=== PATIENT | female | born 1970 | race Caucasian/White ===

== ENCOUNTER 2023-06-21 08:41 | Outpatient (OUT) | payer OTHER, SELFPAY ==
[2023-06-21 09:05] LABS: Basophils Absolute Auto 0.1 10^3/uL (0.0-0.1); Basophils Percent Auto 0.6 % (0.2-2.0); Eosinophils Absolute Auto 0.4 10^3/uL (0.0-0.7); Eosinophils Percent Auto 4.9 % (0.9-7.0); Hematocrit 41.8 % (36.0-48.0); Hemoglobin 13.2 g/dL (12.0-16.0); Immature Granulocytes Abs Auto 0.03 10^3/uL (0.00-0.03); Immature Granulocytes Pct Auto 0.4 % (0.0-0.5); Lymphocytes Absolute Auto 2.1 10^3/uL (1.2-3.8); Lymphocytes Percent Auto 25.4 % (20.5-60.0); Mean Corpuscular HGB Conc 31.6 g/dL (29.9-35.2); Mean Corpuscular Hemoglobin 27.8 pg (26.7-34.0); Mean Platelet Volume 9.8 fL (9.5-13.5); Monocytes Absolute Auto 0.5 10^3/uL (0.3-0.8); Monocytes Percent Auto 5.5 % (1.7-12.0); Neutrophils Absolute Auto 5.2 10^3/uL (1.4-6.5); Neutrophils Percent Auto 63.2 % (43.0-75.0); Platelet Count 376 10^3/uL (150-450); Red Blood Count 4.75 10^6/uL (4.20-5.40); Red Cell Distribution Width 14.7 % (11.0-15.0); White Blood Count 8.2 10^3/uL (4.0-11.0)
[2023-06-21 09:36] LABS: Erythrocyte Sedimentation Rate 51 mm/hr (<=30)
[2023-06-21 09:47] LABS: C Reactive Protein 0.6 mg/dL (<=1.0); Chol HDL Ratio 5.5; Cholesterol 188 mg/dL (<=200); HDL Cholesterol 34 mg/dL (40-60); Thyroid Stimulating Hormone 2.641 uIU/mL (0.358-3.740); Triglycerides 160 mg/dL (<=150)
[2023-06-21 10:32] LABS: Free T4 0.97 ng/dL (0.76-1.46)
== END 2023-06-21 08:42 | disposition home or self-care (01) ==
PROVIDERS: PCP Family Medicine; Visit Provider Family Medicine
DX: Z00.00 Encounter for general adult medical examination without abnormal findings (principal); R20.2 Paresthesia of skin; E55.9 Vitamin D deficiency, unspecified; R94.6 Abnormal results of thyroid function studies
CPT/HCPCS: 36415; 80061; 82306; 82607; 82746; 84439; 84443; 85025; 85652; 86140

== ENCOUNTER 2023-09-16 13:53 | Emergency (ER) | payer OTHER, SELFPAY ==
[2023-09-16 14:03] VITALS: BP 169/91; PULSE 103; RESP 18; TEMP 36.8; O2SAT 98; BMI 42.4
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
[2023-09-16 14:59] LABS: Influenza Virus A Antigen Negative; Influenza Virus B Antigen Negative; Internal Control Within Normal Limits; SARS-CoV-2 Ag NEGATIVE (NEGATIVE)
--- NOTE | 2023-09-16 16:00 | ED.URI1 ---
HPI - URI/Sore Throat General Chief Complaint: Upper Respiratory Infection Stated Complaint: FLU LIKE SYMPTOMS Time Seen by Provider: 09/16/23 14:02 Source: patient Limitations: no limitations History of Present Illness HPI Narrative: developed cough, congestion, sore throat and fatigue 4 days ago. Her significant other just tested positive for Covid. She denied any chest pain or shortness of breath. She had some GI symptoms - diarrhea/loose stools. She is not vaccinated and has never had Covid. Related Data Allergies Allergy/AdvReac Type Severity Reaction Status Date / Time No Known Drug Allergies Allergy Verified 09/16/23 14:02 [facility] Social History Smoking status: Never smoker Exam Narrative Exam Narrative: Nurses notes and vital signs reviewed and patient is not hypoxic. afebrile General: Well-appearing and in no apparent distress. Skin: Warm, dry, no pallor noted. Head: Normocephalic, atraumatic. Neck: Supple, non-tender. No cervical lymphadenopathy Eye: Pupils are equal, round and EOMI. No scleral icterus. Ears, Nose, Mouth, and Throat: TM are clear, mild posterior oropharynx erythema and nasal mucosal hypertrophy, uvula is mid-line Oral mucosa is moist Cardiovascular: Tachycardia. Respiratory: No accessory muscle use or respiratory distress. Lungs are clear to auscultation, no wheezing, rales or rhonchi Musculoskeletal: normal ROM Neurological: A&O x4. No cranial nerve dysfunction observed. No truncal ataxia. Moves all extremities. Sensation intact. Psychiatric: Cooperative and interactive. Normal mood and affect. Constitutional Vital Signs, click to edit/add: Last Vital Signs Temp 98.3 F 09/16/23 14:03 Pulse 103 H 09/16/23 14:03 Resp 18 09/16/23 14:03 BP 169/91 H 09/16/23 14:03 Pulse Ox 98 09/16/23 14:03 Course Vital Signs Vital signs: Vital Signs Temperature 98.3 F 09/16/23 14:03 Pulse Rate 103 H 09/16/23 14:03 Respiratory Rate 18 09/16/23 14:03 Blood Pressure 169/91 H 09/16/23 14:03 Pulse Oximetry 98 09/16/23 14:03 Temperature 98.3 F 09/16/23 14:03 Pulse Rate 103 H 09/16/23 14:03 Respiratory Rate 18 09/16/23 14:03 Blood Pressure 169/91 H 09/16/23 14:03 Pulse Oximetry 98 09/16/23 14:03 MDM - URI/Sore Throat MDM Narrative Medical decision making narrative: The patient tested negative for influenza and COVID but her significant other tested positive and her symptoms are similar. Patient advised to rest, stay at home, practice social distancing, take Motrin and Tylenol for pain and fever if not allergic, stay well hydrated with Gatorade or similar drinks if vomiting or eat as tolerated if not and take any meds as prescribed. Reviewed reasons to return including rapid increase in respiratory rate, shortness of breath, confusion, inability to keep down sips of swallowed liquids for more than 24 hours. Asked patient to encourage any ill contacts to stay home and practice similar advice. Lab Data Attestation: I reviewed the patient's lab results. Labs: Lab Results 09/16/23 Range/Units 14:10 Influenza Type A Ag Negative Influenza Type B Ag Negative SARS-CoV-2 Ag (CV2AG) Negative (NEGATIVE) Discharge Plan Discharge Chief Complaint: Upper Respiratory Infection Clinical Impression: COVID, Viral infection Patient Disposition: Home, Self-Care Time of Disposition Decision: 16:00 Instructions: COVID-19 (Coronavirus Disease 2019) (ED) Stand Alone Forms: Portal Instructions Referrals: KAREN MONTAÑO [Primary Care Provider] - 1 week
== END 2023-09-16 16:05 | disposition home or self-care (01) ==
PROVIDERS: Physician Assistant; Emergency Provider Emergency Medicine; PCP Family Medicine
DX: B34.9 Viral infection, unspecified (principal); Z20.822 Contact with and (suspected) exposure to COVID-19; Z28.310 Unvaccinated for COVID-19
CPT/HCPCS: 87804; 87811; 99283